=== PATIENT | male | born 1995 | race Caucasian/White ===

== ENCOUNTER 2024-01-14 12:50 | Emergency (ER) | payer MEDICAID ==
[~2024-01-14] VITALS: Ht 175.3 cm; Wt 90.0 kg
[2024-01-14 12:59] VITALS: BP 127/83; PULSE 99; RESP 18; TEMP 98.4
[2024-01-14 13:11] LABS: COVID AG,FIA SOURCE NASAL SWAB
[2024-01-14 13:41] LABS: SARS-COV2 (COVID) ANTIGEN,FIA Negative (Negative)
[2024-01-14 13:44] LABS: RAPID GROUP A STREP NEGATIVE (NEGATIVE)
[2024-01-14 14:22] LABS: INFLUENZA TYPE A NEGATIVE FOR TYPE A (NEGATIVE); INFLUENZA TYPE B NEGATIVE FOR TYPE B (NEGATIVE)
[2024-01-14] MEDS ORDERED: IBUP-1492 PO (15:05)
== END 2024-01-14 15:19 | disposition home or self-care (01) ==
LOC: EMS 12:50
DX: J02.9 Acute pharyngitis, unspecified (principal); Z98.890 Other specified postprocedural states; Z20.822 Contact with and (suspected) exposure to COVID-19
CPT/HCPCS: 87430; 87804; 99283